=== PATIENT | female | born 1990 ===

== ENCOUNTER 2022-01-29 08:43 | Outpatient (CLI) | payer OTHER ==
[~2022-01-29 08:43] MED LIST: NITROFURANTOIN100 MG; PRENATAL1 TAB
== END 2022-01-29 09:37 | disposition home or self-care (01) ==
LOC: PRENATAL 08:43
PROVIDERS: ATTEND Obstetrics & Gynecology Maternal & Fetal Medicine
DX: O34.219 Maternal care for unspecified type scar from previous cesarean delivery (principal); O36.8199 Decreased fetal movements, unspecified trimester, other fetus; O35.0XX0 Maternal care for (suspected) central nervous system malformation in fetus, not applicable or unspecified; O35.3XX0 Maternal care for (suspected) damage to fetus from viral disease in mother, not applicable or unspecified